=== PATIENT | male | born 1980 | race Caucasian/White ===

== ENCOUNTER → 2017-03-16 | Outpatient (CLI) | payer OTHER ==
[~2017-03-16] MED LIST: ASPIRIN CHEWABL81 MG PO; CRESTOR10 MG PO; NO HOME MEDS; PROTONIX40 MG PO
== END ==
LOC: RAD 15:37
DX: M54.2 Cervicalgia (principal); M25.521 Pain in right elbow; R53.1 Weakness
CPT/HCPCS: 72050; 73080

== ENCOUNTER 2017-03-18 14:15 | Emergency (ER) | payer OTHER | END 2017-03-18 16:42 | disposition home or self-care (01) | LOC: ER1 14:15 | DX: S63.610A Unspecified sprain of right index finger, initial encounter (principal); F17.210 Nicotine dependence, cigarettes, uncomplicated; W23.0XXA Caught, crushed, jammed, or pinched between moving objects, initial encounter; Y92.009 Unspecified place in unspecified non-institutional (private) residence as the place of occurrence of the external cause | CPT/HCPCS: 73130; 99283 ==

== ENCOUNTER → 2021-01-11 | Outpatient (CLI) | payer OTHER ==
[~2021-01-11] MED LIST changes: +IBUPROFEN600 MG PO; +NORCO 5-325 TA1 EACH PO; +PREDNISONE 50 M50 MG PO; +SILVADENE20 GM TP
== END ==
LOC: KOH-I 10:13
DX: R06.83 Snoring (principal); R53.83 Other fatigue; E66.9 Obesity, unspecified; Z68.35 Body mass index [BMI] 35.0-35.9, adult; R91.8 Other nonspecific abnormal finding of lung field
CPT/HCPCS: 71046

== ENCOUNTER 2021-09-07 16:18 | Emergency (ER) | payer OTHER ==
[2021-09-07 16:42] LABS: RED BLOOD COUNT 5.24 M/UL (4.20-5.50); WHITE BLOOD COUNT 10.5 K/UL (4.5-11.0)
[2021-09-07 17:06] LABS: BUN/CREATININE RATIO 14 (0-10)
== END 2021-09-07 18:42 | disposition home or self-care (01) ==
LOC: ER1 16:18
PROVIDERS: Emergency Medicine
DX: R10.32 Left lower quadrant pain (principal); R10.814 Left lower quadrant abdominal tenderness
CPT/HCPCS: 80053; 81001; 83690; 85025; 93005; 96374; 96375; 99284; J1885; J2405; J7030; Q9967

== ENCOUNTER 2022-05-28 17:31 | Emergency (ER) | payer OTHER ==
[2022-05-28] MEDS ORDERED: CYCLOBENZAPRINE10 MG PO (21:24)
[2022-05-28] MEDS ORDERED: MEDROL DOSEPAK 24 MG PO (21:24)
== END 2022-05-28 21:40 | disposition home or self-care (01) ==
LOC: ER1 17:31
DX: M79.672 Pain in left foot (principal); M54.32 Sciatica, left side; F17.220 Nicotine dependence, chewing tobacco, uncomplicated
CPT/HCPCS: 73630; 96372; 99283; J1100; J1885